=== PATIENT | male | born 1975 | race Caucasian/White ===

== ENCOUNTER 2022-05-28 20:26 | Emergency (ER) | payer SELFPAY ==
[2022-05-28 20:41] VITALS: BP 135/70; PULSE 78; RESP 18; TEMP 36.4; O2SAT 99; BMI 24.4
--- NOTE | 2022-05-28 21:27 | ED.GENADULT ---
HPI - General Adult General Time Seen by Provider: 20:55 Date Seen: 05/28/22 Chief complaint: Laceration/Wound Stated complaint: Finger Lac Time Seen by Provider: 05/28/22 20:42 Source: patient Mode of arrival: ambulatory Limitations: no limitations History of Present Illness HPI narrative: 46-year-old right-handed male who comes in today with a right middle finger laceration. He was using a mandolin to slice cucumbers and cut the tip of his finger. They applied quit clot patient has had continued bleeding for over an hour and so they decided to come to the emergency department. No other injuries. Related Data Home Medications Medication Instructions Recorded Confirmed No Known Home Medications 05/28/22 05/28/22 Allergies Allergy/AdvReac Type Severity Reaction Status Date / Time No Known Drug Allergies Allergy Verified 05/28/22 20:43 Review of Systems Status of ROS: Reports: 10 or more systems reviewed and unremarkable except as noted in History and below [facility] Medical History (Updated 05/28/22 @ 21:32 by Deric Childers MD) No significant past medical history Surgical History (Updated 05/28/22 @ 20:50 by Guero Anderson RN) No significant past surgical history Social History Smoking Status: Never smoker Second hand tobacco smoke exposure: No How often do you have a drink containing alcohol: never How often do you have six or more drinks on one occasion: Never AUDIT-C Alcohol total score: 0 Non-prescribed substance use: denies use Exam Narrative: Exam Narrative: General: well nourished , NAD Head: Atraumatic and normocephalic ENT: External ears and external nose are normal Eyes: Conjunctiva clear, pupils are equal reactive, external ocular motions are intact Neck: Full spontaneous range of motion of the neck Lungs: No respiratory distress Musculoskeletal: No tenderness or deformity Neurologic: No gross focal neurologic deficits Skin: No rashes. Kleenex on tip of the right middle finger, when this was removed quit clot is in place, there is a 3-4 mm superficial avulsion on the tip of the finger Psych: Mood and affect are appropriate Const: Vital Signs, click to edit/add: Vital Signs - 24 hr 05/28/22 20:41 Temperature 97.6 F Pulse Rate [Right Pulse Oximeter] 78 Respiratory Rate 18 Blood Pressure [Ri ght Upper Arm] 135/70 Pulse Oximetry 99 Oxygen Delivery Me thod Room Air Documenting provider has reviewed patient's vital signs: yes Course Vital Signs Vital signs: Initial Vital Signs Temperature 97.6 F 05/28/22 20:41 Temperature Source Temporal Artery Scan 05/28/22 20:41 Pulse Rate 78 05/28/22 20:41 Respiratory Rate 18 05/28/22 20:41 Blood Pressure 135/70 05/28/22 20:41 Blood Pressure Mean 91 05/28/22 20:41 Blood Pressure Position Sitting 05/28/22 20:41 Pulse Oximetry 99 05/28/22 20:41 Oxygen Delivery Method 05/28/22 20:41 Vital Signs Temperature 97.6 F 05/28/22 20:41 Pulse Rate 78 05/28/22 20:41 Respiratory Rate 18 05/28/22 20:41 Blood Pressure 135/70 05/28/22 20:41 Pulse Oximetry 99 05/28/22 20:41 Oxygen Delivery Method 05/28/22 20:41 Temperature 97.6 F 05/28/22 20:41 Pulse Rate 78 05/28/22 20:41 Respiratory Rate 18 05/28/22 20:41 Blood Pressure 135/70 05/28/22 20:41 Pulse Oximetry 99 05/28/22 20:41 Oxygen Delivery Method 05/28/22 20:41 Medical Decision Making MDM Narrative Medical decision making narrative: Patient seen and examined, prior records reviewed. Patient avulsed the tip of his finger with a mandolin. Ongoing bleeding and so came to the emergency department. On initial exam, there is some slow ooze. Wound was cleansed with wound cleanser and Nonadherent gauze is placed. Subsequently gauze with lidocaine and epinephrine was placed. After about 10 minutes, this was recheck. No further bleeding. Gelfoam dressing will be placed and patient is stable for discharge. Medical Records Medical records reviewed: Yes I reviewed the patient's medical records Lab Data Lab results reviewed: Yes I reviewed the patient's lab results Discharge Plan Discharge Clinical Impression: Avulsion, finger tip Patient Disposition: Home, Self-Care Condition: Stable Instructions: Skin Avulsion (ED) Additional Instructions: Leave dressing on for 24 hours. After 24 hours, removed gently. If the gauze is sticking to the finger, gently wet with cool water to help with removal. Wash gently with soap and water daily, dressing for comfort. If bleeding starts again, apply pressure and elevate over the level of the heart, apply cool packs as well as this can help with bleeding. Activity Level: No Restrictions Discharge Diet: Regular Prescriptions: No Action No Known Home Medications Follow Up/Referrals: Provider,Not a Local [Primary Care Provider] - Stand Alone Forms: Erly Info Instructions
[2022-05-28 21:41] VITALS: BP 122/74; PULSE 81; RESP 18; TEMP 36.4; O2SAT 99
[2022-05-28 21:42] VITALS: BP 122/74; PULSE 81; RESP 18; TEMP 36.4
[2022-05-28] MEDS: TETANUS/DIPHTH/PERTUSSIS 0.5 ML SYRINGE IM (21:52)
== END 2022-05-28 21:57 | disposition home or self-care (01) ==
PROVIDERS: Emergency Provider Family Medicine
DX: S61.302A Unspecified open wound of right middle finger with damage to nail, initial encounter (principal); W26.9XXA Contact with unspecified sharp object(s), initial encounter
CPT/HCPCS: 90471; 90715; 99282; 99283